=== PATIENT | female | born 1950 | race Caucasian/White ===

== ENCOUNTER 2017-08-07 18:34 | Emergency (ER) | payer MEDICARE, BC ==
--- NOTE | 2017-08-07 19:17 | EDM.PDOC ---
ED HPI GENERAL MEDICAL PROBLEM - General Chief Complaint: Lower Extremity Injury/Pain Stated Complaint: POSSIBLE BLOOD CLOT/LEG Time Seen by Provider: 08/07/17 18:55 - History of Present Illness INITIAL COMMENTS - FREE TEXT/NARRATIVE: HISTORY AND PHYSICAL: History of present illness: Patient's a 67-year-old white female with a long history of smoking with concern of bilateral lower extremity pain 6-7 months she states this is increased with walking she is here with her daughter requesting evaluation for possible deep venous thrombosis. She denies history of prior DVT or PE she denies any other risk factors for DVT or pulmonary embolism there's been no trauma Review of systems: As per history of present illness and below otherwise all systems reviewed and negative. Past medical history: As per history of present illness and as reviewed below otherwise noncontributory. Surgical history: As per history of present illness and as reviewed below otherwise noncontributory. Social history: No reported history of drug or alcohol abuse. Family history: As per history of present illness and as reviewed below otherwise noncontributory. Physical exam: HEENT: Atraumatic, normocephalic, pupils reactive, negative for conjunctival pallor or scleral icterus, mucous membranes moist, throat clear, neck supple, nontender, trachea midline. Lungs: Clear to auscultation, breath sounds equal bilaterally, chest nontender. Heart: S1S2, regular, negative for clicks, rubs, or JVD. Abdomen: Soft, nondistended, nontender. Negative for masses or hepatosplenomegaly. Negative for costovertebral tenderness. Pelvis: Stable nontender. Genitourinary: Deferred. Rectal: Deferred. Extremities: Atraumatic, negative for cords or calf pain. Neurovascular unremarkable. Neuro: Awake, alert, oriented. Cranial nerves II through XII unremarkable. Cerebellum unremarkable. Motor and sensory unremarkable throughout. Exam nonfocal. Diagnostics: CBC CMP bilateral venous Doppler inferior extremities Therapeutics: None Impression: #1 intermittent lower extremity pain etiology be determined rule out peripheral vascular disease Definitive disposition and diagnosis as appropriate pending reevaluation and review of above. bilateral lower legs Pain Score (Numeric/FACES): 4 - Related Data Allergies Allergy/AdvReac Type Severity Reaction Status Date / Time Sulfa (Sulfonamide Allergy Mouth Sores Verified 08/07/17 18:51 Antibiotics) Home Meds: Home Meds . [No Known Home Meds] 08/07/17 [History] Past Medical History HEENT History: Reports: Macular Degeneration Cardiovascular History: Reports: None Respiratory History: Reports: None Gastrointestinal History: Reports: None Genitourinary History: Reports: None [employer] DIRECT[employer] History: Reports: None Musculoskeletal History: Reports: None Neurological History: Reports: None Psychiatric History: Reports: None Endocrine/Metabolic History: Reports: None Hematologic History: Reports: None Immunologic History: Reports: None Oncologic (Cancer) History: Reports: None Dermatologic History: Reports: None - Infectious Disease History Infectious Disease History: Reports: Measles - Past Surgical History Head Surgeries/Procedures: Reports: None HEENT Surgical History: Reports: None Cardiovascular Surgical History: Reports: None Respiratory Surgical History: Reports: None GI Surgical History: Reports: None Female Surgical History: Reports: None Endocrine Surgical History: Reports: None Neurological Surgical History: Reports: None Musculoskeletal Surgical History: Reports: None Oncologic Surgical History: Reports: None Dermatological Surgical History: Reports: None Social & Family History - Family History Family Medical History: Noncontributory - Tobacco Use Smoking Status *Q: Current Every Day Smoker Years of Tobacco use: 35 Packs/Tins Daily: 1 - Caffeine Use Caffeine Use: Reports: Coffee - Recreational Drug Use Recreational Drug Use: No Review of Systems - Review of Systems Review Of Systems: ROS reveals no pertinent complaints other than HPI. ED EXAM, GENERAL - Physical Exam Exam: See Below (The dictation) Course - Vital Signs Last Recorded V/S: Last Vital Signs Temp 36.5 C 08/07/17 18:52 Pulse 65 08/07/17 18:52 Resp 18 08/07/17 18:52 BP 162/72 H 08/07/17 18:52 Pulse Ox 98 08/07/17 18:52 - Orders/Labs/Meds Orders: Active Orders 24 hr Category Date Time Status Venous Doppler Lwr Ext Bi [US] Stat Exams 08/07/17 19:12 Ordered Labs: Laboratory Tests 08/07/17 08/07/17 Range/Units 19:19 19:19 WBC 7.58 (4.0-11.0) K/uL RBC 5.03 (4.30-5.90) M/uL Hgb 15.7 (12.0-16.0) g/dL Hct 45.1 (36.0-46.0) % MCV 89.7 (80.0-98.0) fL MCH 31.2 (27.0-32.0) pg MCHC 34.8 (31.0-37.0) g/dL RDW Std Deviation 44.4 (28.0-62.0) fl RDW Coeff of Sirisha 14 (11.0-15.0) % Plt Count 204 (150-400) K/uL MPV 11.20 (7.40-12.00) fL Neut % (Auto) 56.1 (48.0-80.0) % Lymph % (Auto) 33.9 (16.0-40.0) % Boyd % (Auto) 7.5 (0.0-15.0) % Eos % (Auto) 2.0 (0.0-7.0) % Baso % (Auto) 0.5 (0.0-1.5) % Neut # (Auto) 4.3 (1.4-5.7) K/uL Lymph # (Auto) 2.6 H (0.6-2.4) K/uL Boyd # (Auto) 0.6 (0.0-0.8) K/uL Eos # (Auto) 0.2 (0.0-0.7) K/uL Baso # (Auto) 0.0 (0.0-0.1) K/uL Nucleated RBC % 0.0 /100WBC Nucleated RBCs # 0 K/uL Sodium 143 (136-145) mmol/L Potassium 3.8 (3.5-5.1) mmol/L Chloride 106 (98-107) mmol/L Carbon Dioxide 28.2 (21.0-32.0) mmol/L BUN 11 (7.0-18.0) mg/dL Creatinine 0.8 (0.6-1.0) mg/dL Est Cr Clr Drug Dosing 59.72 mL/min Estimated GFR (MDRD) > 60.0 ml/min Glucose 103 (74-106) mg/dL Calcium 9.1 (8.5-10.1) mg/dL Total Bilirubin 0.6 (0.2-1.0) mg/dL AST 17 (15-37) IU/L ALT 26 (14-63) IU/L Alkaline Phosphatase 80 (46-116) U/L Total Protein 7.1 (6.4-8.2) g/dL Albumin 4.1 (3.4-5.0) g/dL Globulin 3.0 (2.0-3.5) g/dL Albumin/Globulin Ratio 1.4 (1.3-2.8) Departure - Departure Time of Disposition: 20:07 Disposition: Home, Self-Care 01 Condition: Good Clinical Impression: Leg pain - Discharge Information Referrals: PCP,None [Primary Care Provider] - Forms: ED Department Discharge Additional Instructions: The following information is given to patients seen in the emergency department who are being discharged to home. This information is to outline your options for follow-up care. We provide all patients seen in our emergency department with a follow-up referral. The need for follow-up, as well as the timing and circumstances, are variable depending upon the specifics of your emergency department visit. If you don't have a primary care physician on staff, we will provide you with a referral. We always advise you to contact your personal physician following an emergency department visit to inform them of the circumstance of the visit and for follow-up with them and/or the need for any referrals to a consulting specialist. The emergency department will also refer you to a specialist when appropriate. This referral assures that you have the opportunity for followup care with a specialist. All of these measure are taken in an effort to provide you with optimal care, which includes your followup. Under all circumstances we always encourage you to contact your private physician who remains a resource for coordinating your care. When calling for followup care, please make the office aware that this follow-up is from your recent emergency room visit. If for any reason you are refused follow-up, please contact the [facility] emergency department at and asked to speak to the emergency department charge nurse. Follow-up primary medical doctor as needed as discussed stop smoking return as needed as discussed - My Orders Last 24 Hours: My Active Orders 08/07/17 19:12 Venous Doppler Lwr Ext Bi [US] Stat - Assessment/Plan Last 24 Hours: My Active Orders 08/07/17 19:12 Venous Doppler Lwr Ext Bi [US] Stat
[2017-08-07 19:58] LABS: CHLORIDE,CL 106 mmol/L (98-107); SODIUM,NA 143 mmol/L (136-145)
--- NOTE | 2017-08-08 09:53 | US ---
EXAM DATE: 08/07/17 PATIENT'S AGE: 67 Patient: REX RANDLE Facility: [place], [place] Site . Site : [id number] Study: US Extremity Bilateral venous [id number]/07/2017 8:08:20 PM Ordering Physician: Stew Armstrong Final Report: INDICATION: 6 months of pain and swelling. TECHNIQUE: A compression venous ultrasound exam was performed of both lower extremities using armendariz scale imaging, color Doppler and spectral Doppler analysis. FINDINGS: Sonographic imaging of the lower extremities demonstrates normal compressibility and color Doppler venous blood flow within the common femoral, deep femoral, and proximal greater saphenous veins. Within the thighs the femoral veins are patent and compressible. At a lower level the popliteal and posterior tibial veins also show normal compressibility and color Doppler venous blood flow. IMPRESSION: Normal venous ultrasound exam. No evidence of deep vein thrombosis within either the left or right lower extremity. Dictated by Ananda Velásquez MD @ Aug 07 2017 8:19PM (Electronic Signature) Report Signed by Proxy. REINA
== END 2017-08-07 20:13 | disposition home or self-care (01) ==
LOC: MW.ED 18:34
DX: M79.662 Pain in left lower leg (principal); M79.661 Pain in right lower leg; F17.210 Nicotine dependence, cigarettes, uncomplicated; Z88.2 Allergy status to sulfonamides
CPT/HCPCS: 36415; 80053; 85025; 93970; 93970-26; 99284-25